=== PATIENT | male | born 1985 | race Caucasian/White ===

== ENCOUNTER 2018-06-07 10:30 | Emergency (ER) | payer MEDICAID ==
[~2018-06-07] VITALS: Ht 185.4 cm; Wt 100.0 kg
[2018-06-07] MEDS ORDERED: CEPHALEXIN 250MG CAPSULE PO ONE (11:15)
[2018-06-07 11:31] VITALS: BP 103/73
== END 2018-06-07 11:32 | disposition home or self-care (01) ==
LOC: ER 10:30
DX: L04.0 Acute lymphadenitis of face, head and neck (principal); F17.200 Nicotine dependence, unspecified, uncomplicated; M54.30 Sciatica, unspecified side
CPT/HCPCS: 99283

== ENCOUNTER 2018-06-08 11:17 | Emergency (ER) | payer MEDICAID ==
[~2018-06-08] VITALS: Ht 185.4 cm; Wt 100.0 kg
[2018-06-08] MEDS ORDERED: SODIUM CHLORIDE 0.9% 1,000 ML IV ONE (12:16)
[2018-06-08] MEDS ORDERED: CEFTRIAXONE 1 G PREMIX 50 ML IV ONE (12:30)
[2018-06-08 13:08] LABS: HEMATOCRIT. 47.5 % (42.0-52.0); HEMOGLOBIN. 16.8 g/dL (14.0-18.0); MEAN CORPUSCULAR HEMOGLOBIN 32.5 pg (28.0-32.0); MEAN CORPUSCULAR VOLUME 92.2 fL (80.0-94.0); MEAN PLATELET VOLUME 6.4 fl (7.4-10.4); PLATELET 221 x1000/uL (130-400); RED BLOOD CELL COUNT 5.15 mill/uL (4.7-6.1); RED CELL DISTRIBUTION WIDTH 13.3 % (11.6-14.6)
[2018-06-08 13:09] LABS: CHLORIDE 107 mEq/L (98-107)
[2018-06-08 13:54] LABS: ATYPICAL LYMPHOCYTES 1; PLATELET ESTIMATE NORMAL
[2018-06-08 13:58] LABS: CLARITY URINE CLEAR (CLEAR); COLOR URINE YELLOW (YELLOW); KETONES URINE NEGATIVE (NEGATIVE); LEUKOCYTE ESTERASE URINE NEGATIVE (NEGATIVE); NITRITE URINE NEGATIVE (NEGATIVE); OCCULT BLOOD URINE NEGATIVE (NEGATIVE); PROTEIN URINE NEGATIVE (NEGATIVE)
[2018-06-08 16:15] VITALS: BP 118/74
== END 2018-06-08 16:29 | disposition home or self-care (01) ==
LOC: ER 11:17
DX: K11.20 Sialoadenitis, unspecified (principal); F17.200 Nicotine dependence, unspecified, uncomplicated
CPT/HCPCS: 36415; 70490; 80053; 81003; 85025; 96365; 99284; J0696; J7030; Z7610

== ENCOUNTER 2019-07-23 10:28 | Emergency (ER) | payer MEDICAID ==
[~2019-07-23] VITALS: Ht 185.4 cm; Wt 100.0 kg
[2019-07-23] MEDS ORDERED: ACETAMINOPHEN 325MG TABLET PO ONE (11:15)
[2019-07-23] MEDS ORDERED: FLUORESCEIN SODIUM 1MG/STRIP RIGHTEYE ONE (11:15)
[2019-07-23] MEDS ORDERED: TETRACAINE 0.5% OPHTH DROPS 4ML RIGHTEYE ONE (11:30)
[2019-07-23 12:24] VITALS: BP 117/74
== END 2019-07-23 12:27 | disposition home or self-care (01) ==
LOC: ER 10:28
DX: B02.9 Zoster without complications (principal); H05.011 Cellulitis of right orbit; Z94.7 Corneal transplant status
CPT/HCPCS: 99283; 99284

== ENCOUNTER 2019-07-24 19:08 | Emergency (ER) | payer MEDICAID ==
[~2019-07-24] VITALS: Ht 185.4 cm; Wt 100.0 kg
[2019-07-24] MEDS ORDERED: TETRACAINE 0.5% OPHTH DROPS 4ML RIGHTEYE ONE (20:15)
[2019-07-24] MEDS ORDERED: FLUORESCEIN SODIUM 1MG/STRIP RIGHTEYE ONE (20:15)
[2019-07-24 21:31] LABS: BASOPHILS % 0.8 % (0.0-2.0); EOSINOPHILS % 4.2 % (0.0-5.0); HEMOGLOBIN. 16.9 g/dL (14.0-18.0); MEAN CORPUSCULAR HEMOGLOBIN 32.6 pg (28.0-32.0); MEAN CORPUSCULAR VOLUME 92.6 fL (80.0-94.0); MEAN PLATELET VOLUME 6.5 fl (7.4-10.4); PLATELET 285 x1000/uL (130-400); RED BLOOD CELL COUNT 5.19 mill/uL (4.7-6.1); RED CELL DISTRIBUTION WIDTH 12.7 % (11.6-14.6)
[2019-07-24 21:38] LABS: CHLORIDE 106 mEq/L (98-107)
[2019-07-25 05:25] VITALS: BP 114/72
== END 2019-07-25 05:40 | disposition home or self-care (01) ==
LOC: ER 19:08
DX: B02.30 Zoster ocular disease, unspecified (principal); L03.213 Periorbital cellulitis
CPT/HCPCS: 36415; 70486; 80048; 85025; 99285